=== PATIENT | female | born 1980 | race Caucasian/White ===

== ENCOUNTER 2019-12-13 10:42 | Inpatient (IN) | payer OTHER ==
[~2019-12-13] VITALS: Ht 165 cm; Wt 76.2 kg
[~2019-12-13 10:42] MED LIST: PRENATAL ONE T1 EACH BC
[2019-12-13] MEDS ORDERED: RINGERS SOLUTION,LACTATED 1,000 ML IV PRN (11:03)
[2019-12-13] MEDS ORDERED: OXYTOCIN 30 UNITS/LACT RINGERS 500 ML IV ONE (11:03)
[2019-12-13] MEDS ORDERED: METOCLOPRAMIDE HCL 5 MG/ML 2 ML VIAL IVP PRN (11:15)
[2019-12-13] MEDS ORDERED: AMPICILLIN SODIUM 2 GM/NS 100 ML IV ONE (11:15)
[2019-12-13] MEDS ORDERED: FentaNYL CITRATE-PF 100 MCG/2 ML VIAL IVP PRN (11:15)
[2019-12-13] MEDS ORDERED: CITRIC ACID/SODIUM CITRATE 30 ML SOLUTION UDCUP PO PRN (11:15)
[2019-12-13 11:58] VITALS: BP 118/64
[2019-12-13] MEDS: RINGERS SOLUTION,LACTATED 1,000 ML IV SCH ×2 (12:10→20:10)
[2019-12-13] MEDS: OXYTOCIN 30 UNITS/LACT RINGERS 500 ML IV PRN (12:12)
[2019-12-13] MEDS ORDERED: PREN-217 PO (12:13)
[2019-12-13 13:10] LABS: BASOPHILS % (AUTO) 0.3 % (0.0-2.0); EOSINOPHILS % (AUTO) 0.9 % (1.0-6.0); HEMATOCRIT 40.9 % (36-46); HEMOGLOBIN 13.7 g/dL (12.0-16.0); LYMPHOCYTES # (AUTO) 0.9 K/uL (1.0-4.8); LYMPHOCYTES % (AUTO) 12.7 % (22.0-44.0); MEAN CORPUSCULAR HEMOGLOBIN 29.5 pg (26.0-34.0); MEAN CORPUSCULAR HGB CONC 33.5 G/dL (31.0-37.0); MEAN CORPUSCULAR VOLUME 88 fL (80-100); MONOCYTES # (AUTO) 0.5 K/uL (0.1-1.0); MONOCYTES % (AUTO) 6.9 % (2.0-9.0); NEUTROPHILS # (AUTO) 5.8 K/uL (1.8-7.7); NEUTROPHILS % (AUTO) 79.2 % (40.0-70.0); PLATELET COUNT (AUTO)-OB 161 K/uL (150-450); RED BLOOD CELL COUNT(AUTO) 4.65 MIL/uL (4.00-5.20)
[2019-12-13] MEDS: AMPICILLIN SODIUM 1 GM/NS 50 ML IV SCH ×2 (16:00→20:10)
[2019-12-13] MEDS ORDERED: MISOPROSTOL 25 MCG TABLET PO ONE (16:00)
[2019-12-13] MEDS ORDERED: OXYGEN THERAPY IH SCH (20:00)
[2019-12-13] MEDS ORDERED: MISOPROSTOL 50 MCG TABLET PO SCH (20:00)
[2019-12-13] MEDS ORDERED: ROPIVACAINE HCL/PF 0.2% 100 ML ED ONE (22:18)
[2019-12-13] MEDS ORDERED: LIDOCAINE/PF 2% 5 ML VIAL ONE (22:18)
[2019-12-14] MEDS ORDERED: ROPIVACAINE HCL/PF 0.2% 100 ML ED PRN
[2019-12-14] MEDS ORDERED: ONDANSETRON HCL 4 MG/2 ML VIAL IVP PRN
[2019-12-14] MEDS ORDERED: DiphenhydrAMINE HCL 50 MG/ML VIAL IVP PRN
[2019-12-14] MEDS ORDERED: NALBUPHINE HCL 10 MG/ML VIAL IVP PRN
[2019-12-14] MEDS: AMPICILLIN SODIUM 1 GM/NS 50 ML IV SCH ×3 (03:50→05:58)
[2019-12-14] MEDS: OXYTOCIN 30 UNITS/LACT RINGERS 500 ML IV PRN (05:47)
[2019-12-14] MEDS ORDERED: LIDOCAINE 2%/EPI 1:200,000/PF 20 ML VIAL ONE (08:13)
[2019-12-14] MEDS ORDERED: IBUPROFEN 600 MG TABLET PO PRN (11:15)
[2019-12-14] MEDS ORDERED: BENZOCAINE 20%/MENTHOL 56 GM SPRAY CANISTER TP PRN (11:15)
[2019-12-14] MEDS ORDERED: LANOLIN 7 GM OINTMENT TP PRN (11:15)
[2019-12-14] MEDS ORDERED: OxyCODONE HCL/ACETAMINOPHEN 5-325 MG TABLET PO PRN ×2 (11:15)
[2019-12-14] MEDS ORDERED: GLYCERIN/WITCH HAZEL LEAF 40 PADS JAR TP PRN (11:15)
[2019-12-14] MEDS ORDERED: MAGNESIUM HYDROXIDE SUSPENSION 30 ML UDCUP PO SCH (21:00)
[2019-12-15] MEDS ORDERED: INFLUENZA VIRUS VACCINE QVS 2019-20 (3YR+)/PF 60 MCG/0.5 ML SYRINGE IM ONE (07:00)
[2019-12-15] MEDS ORDERED: IBUP-2071 PO (09:43)
[2019-12-15] MEDS ORDERED: DOCU-275 PO (09:44)
== END 2019-12-15 10:55 | disposition home or self-care (01) | DRG 806 ==
LOC: OBSVTOIN 10:42 → 4S 10:42
PROVIDERS: ADMIT Obstetrics & Gynecology; ATTEND Obstetrics & Gynecology
PROC: 10D07Z6 Extraction of Products of Conception, Vacuum, Via Natural or Artificial Opening (ICD-10-PCS; principal; 2019-12-14)
PROC: 0HQ9XZZ Repair Perineum Skin, External Approach (ICD-10-PCS; 2019-12-14)
PROC: 3E0R3BZ Introduction of Anesthetic Agent into Spinal Canal, Percutaneous Approach (ICD-10-PCS; 2019-12-14)
PROC: 00HU33Z Insertion of Infusion Device into Spinal Canal, Percutaneous Approach (ICD-10-PCS; 2019-12-14)
DX: O69.82X0 Labor and delivery complicated by other cord entanglement, without compression, not applicable or unspecified (principal); O41.03X0 Oligohydramnios, third trimester, not applicable or unspecified; Z37.0 Single live birth; Z20.828 Contact with and (suspected) exposure to other viral communicable diseases; O70.0 First degree perineal laceration during delivery; O99.824 Streptococcus B carrier state complicating childbirth; Z3A.39 39 weeks gestation of pregnancy
CPT/HCPCS: 86850; 86900; 86901; 87635; 90686; J0290; J2590; J2795; J3490; J7120